=== PATIENT | female | born 1950 | race Caucasian/White ===

== ENCOUNTER → 2017-04-12 | Outpatient (CLI) | payer MEDICARE, OTHER ==
[~2017-04-12] MED LIST: REGADENOSON 0.4 MG/5 ML SYRINGE IV ONE
--- NOTE | 2017-04-12 11:41 | P.STRESS ---
- Stress Test Note Stress Test Results/Findings: Exam Performed: NM stress lexiscan cardiolite Exam Date: 04/12/17 Height: 5 ft 6 in Weight: 111.13 kg Protocol: N/A Stage: N/A Duration of Exercise: N/A Resting Heart Rate: 66 Resting Blood Pressure: 245 Maximum Achieved Heart Rate: 114 Maximum Achieved Blood Pressure: 217/89 85% PMHR: N/A 100% PMHR: N/A METS: N/A Technologist Comment: Stress Test Results/Findings: Baseline rhythm is sinus mechanism with left bundle branch block. He should receive the injection of Lexiscan. EKG monitoring showed no diagnostic ST segment changes with occasional PVCs. Cardiolite was injected per protocol. Impression: 1. Nondiagnostic EKG stress test. 2. Nuclear images will be reported separately.
--- NOTE | 2017-04-12 12:47 | NM ---
EXAMINATION TYPE: NM stress lexiscan cardiolite DATE OF EXAM: 04/12/2017 COMPARISON: NONE HISTORY: Chest pain TECHNIQUE: After the intravenous administration of 10.5 mCi Tc 99m Sestamibi - Cardiolite resting SP ECT images acquired 50 minutes post injection. The patient received 0.4mg Lexiscan, 27.1 mCi Tc 99m Sestamibi - Stress images obtained [address] injection FINDINGS: Review of stress and rest SPECT images demonstrates fixed defect involving the apex and septum. Small area of reversibility not excluded. Gated analysis shows normal wall motion with an estimated left ventricular ejection fraction of 61 %. IMPRESSION: Fixed defect involving the apical and septal portion of the myocardium. Small area of stress-induced reversibility not excluded. A Yellow message has been communicated to Matt Jeffers MD via the [employer] system on 04/12/2017 12:45 PM, Message ID [id number].
== END | disposition home or self-care (01) ==
LOC: RADNMMAIN 07:36
PROVIDERS: ATTEND Family Medicine
DX: R07.89 Other chest pain (principal)
CPT/HCPCS: 93017; 78452; A9500

== ENCOUNTER → 2017-04-17 | Outpatient (CLI) | payer MEDICARE, OTHER ==
--- NOTE | 2017-04-18 10:30 | ECHOF ---
Referral Reason:R07.89 Chest Pain on exertion MEASUREMENTS -------- HEIGHT: 167.6 cm WEIGHT: 111.1 kg BP: 127/80 RVIDd: 3.5 cm (< 3.3) IVSd: 1.3 cm (0.6 - 1.1) LVIDd: 3.9 cm (3.9 - 5.3) LVPWd: 1.4 cm (0.6 - 1.1) IVSs: 1.5 cm LVIDs: 2.9 cm LVPWs: 2.3 cm Ao Diam: 2.5 cm (2.0 - 3.7) AV Cusp: 1.8 cm (1.5 - 2.6) LA Diam: 3.4 cm (2.7 - 3.8) MV EXCURSION: 12.842 mm (> 18.000) MV EF SLOPE: 56 mm/s (70 - 150) EPSS: 0.2 cm MV E Gibran: 0.59 m/s MV DecT: 81 ms MV A Gibran: 0.97 m/s MV E/A Ratio: 0.61 RAP: 5.00 mmHg RVSP: 13.79 mmHg FINDINGS -------- LBBB This was a technically difficult study with suboptimal views. There is mild concentric left ventricular hypertrophy. Overall left ventricular systolic function is low-normal with, an EF between 50 - 55 %. There is paradoxical/dysynergic septal motion consistent with left bundle branch block. The right ventricle is mildly enlarged. The left atrium is normal in size. The right atrium is normal in size. 1.5mg of Definity was utilized for enhancement of images Aortic valve is trileaflet and is mildly thickened. The mitral valve leaflets are mildly thickened. There is trace mitral regurgitation. Mild tricuspid regurgitation present. The right ventricular systolic pressure, as measured by Doppler, is 13.79mmHg. Pulmonic valve appears structurally normal. The aortic root size is normal. The pericardium is normal. CONCLUSIONS -------- 1. LBBB 2. Aortic valve is trileaflet and is mildly thickened. 3. The mitral valve leaflets are mildly thickened. 4. There is trace mitral regurgitation. 5. Mild tricuspid regurgitation present. 6. The right ventricular systolic pressure, as measured by Doppler, is 13.79mmHg. 7. Pulmonic valve appears structurally normal. 8. The aortic root size is normal. 9. The pericardium is normal. 10. This was a technically difficult study with suboptimal views. 11. There is mild concentric left ventricular hypertrophy. 12. Overall left ventricular systolic function is low-normal with, an EF between 50 - 55 %. 13. There is paradoxical/dysynergic septal motion consistent with left bundle branch block. 14. The right ventricle is mildly enlarged. 15. The left atrium is normal in size. 16. The right atrium is normal in size. 17. 1.5mg of Definity was utilized for enhancement of images SKIN LAP BONDER: Ruchi Sahu RDCS
== END | disposition home or self-care (01) ==
LOC: RADECHMAIN 14:41
PROVIDERS: ATTEND Family Medicine
DX: I08.1 Rheumatic disorders of both mitral and tricuspid valves (principal); R07.89 Other chest pain
CPT/HCPCS: 93325; C8929; Q9957; 93306

== ENCOUNTER → 2022-03-31 | Outpatient (CLI) | payer MEDICARE ==
[2022-03-31 14:42] LABS: HCT 40.8 % (37.2-46.3); HGB 13.1 g/dL (12.0-15.0); MCH 30.8 pg (27.0-32.0); MCHC 32.1 g/dL (32.0-37.0); MCV 95.8 fL (80.0-97.0); Mean Platelet Volume 9.7 fL (9.5-12.2); NRBC Per 100 WBC 0 /100 WBCS (0.0-0.0); Platelet Count 227 X 10*3/uL (140-440); RBC 4.26 X 10*6/uL (4.10-5.20); WBC 6.23 X 10*3/uL (4.50-10.00)
[2022-03-31 15:02] LABS: Anion Gap 10.2 mmol/L (10.00-18.00); Carbon Dioxide 28.7 mmol/L (20.0-27.5); Potassium 4.7 mmol/L (3.5-5.5)
[2022-03-31 15:03] LABS: African American GFR (CKD) 81.4 (60.0-200.0); Non-African American GFR(CKD) 70.3 (60.0-200.0)
== END | disposition home or self-care (01) ==
LOC: LABWHC1 08:44
PROVIDERS: ATTEND Internal Medicine Interventional Cardiology
DX: Z01.812 Encounter for preprocedural laboratory examination (principal); R94.39 Abnormal result of other cardiovascular function study
CPT/HCPCS: 36415; 80051; 82565; 84520; 85027

== ENCOUNTER 2022-04-11 06:21 | Day surgery (SDC) | payer MEDICARE, OTHER ==
[~2022-04-11 06:21] MED LIST changes: +ALPRAZolam 0.25 MG TAB PO PRN; +ALPRAZolam 0.5 MG TAB PO PRN; +NITROGLYCERIN SL TABS 0.4 MG TAB SUBLINGUAL PRN; -REGADENOSON 0.4 MG/5 ML SYRINGE IV ONE; +SODIUM CHLORIDE 0.9% 1,000 ML in EMPTY BAG 1 BAG IV SCH
[2022-04-11] MEDS ORDERED: SODIUM CHLORIDE 0.9% 1,000 ML IV ONE (06:40)
[2022-04-11] MEDS ORDERED: ASPIRIN 325 MG TAB PO ONE (07:00)
[2022-04-11 07:22] VITALS: TEMP 98.2
[2022-04-11] MEDS ORDERED: VERAPAMIL 2.5 MG/ML 2 ML AMP ONE (07:22)
[2022-04-11] MEDS ORDERED: HEPARIN SODIUM 1,000 UN/ML (10ML VL) ONE (07:26)
[2022-04-11] MEDS ORDERED: fentaNYL (PF) 50 MCG/ML 2 ML AMP ONE (07:26)
[2022-04-11] MEDS ORDERED: fentaNYL (PF) 50 MCG/ML 2 ML AMP IVP ONE (07:49)
[2022-04-11] MEDS ORDERED: LIDOCAINE 1% INJ 10MG/ML (5 ML VIAL-PF) SQ ONE (07:51)
[2022-04-11] MEDS ORDERED: VERAPAMIL SYRINGE (5 MG/10 ML) INTRAARTER ONE (07:54)
[2022-04-11] MEDS ORDERED: HEPARIN SODIUM 1,000 UN/ML (10ML VL) IV ONE (08:00)
[2022-04-11] MEDS ORDERED: IOPAMIDOL-370 125ML BTL INJ ONE (08:06)
[2022-04-11] MEDS ORDERED: RX INFO: IV CONTRAST WAS GIVEN 1 EACH MISC MISCELLANE PRN (08:13)
[2022-04-11] MEDS ORDERED: SODIUM CHLORIDE 0.9% 1,000 ML IV SCH (08:15)
--- NOTE | 2022-04-11 08:18 | P.CARDCATH ---
Date of Procedure: 04/11/22 Description of Procedure: Cardiac Catheterization: The patient is a 71-year-old female with a known history of permanent pacemaker is being evaluated to undergo surgical intervention has been complaining of dyspnea and had an abnormal MPI. Recommendations were made regarding cardiac catheterization, the risks and the complications were discussed with the patient who is in full understanding and agreement. 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 Using Xylocaine Anesthesia and Seldinger technique, a 6-Austrian sheath was introduced in the right radial artery . Subsequently, selective coronary angiography was performed using a 5-Austrian 3.5 bend Jessa catheter. Multiple views of the coronary artery including hemiaxial views were obtained. The left Jessa catheter was used to cross the aortic valve and LVEDP was calculated. Following that, catheter and sheath were removed. Hemostasis was obtained with deployment of TR band . There was no immediate complication. Patient was returned to room in stable condition. Of note, the patient received a total of 5000 units of intravenous heparin as well as intra-arterial verapamil. There was no immediate complications. Findings: Left main: This is a short sized vessel, bifurcating into LAD and left circumflex, left main has no evidence of high-grade stenosis. LAD: This vessel tapers down in the distal third, gives rise to a large proximal diagonal branch, the LAD and its branches have no evidence of high-grade stenosis Left circumflex: This is a nondominant vessel, large in caliber, giving rise to a large obtuse marginal branch, the left circumflex has no evidence of high- grade stenosis RCA: This is a dominant vessel large in caliber, bifurcating into PDA and PLV, the RCA has no evidence of high-grade stenosis Left Ventriculogram: Not performed Hemodynamics: There was no gradient across the aortic valve, LVEDP 12-16 mmHg Conclusion: 1. Normal coronary arteries 2. Right dominance Recommendations: I have recommended continued medical therapy with the aggressive coronary risk modification that has been initiated. The findings and recommendations were discussed with the patient and her family. They are in full understanding and agreement. Duration of sedation is 20 minutes.
[2022-04-11] MEDS ORDERED: ONDANSETRON 4 MG/2 ML VIAL IVP STA (10:06)
[2022-04-11 11:33] VITALS: RESP 16
[2022-04-11 12:36] VITALS: BP 137/67; PULSE 70
[2022-04-12] MEDS ORDERED: ASPIRIN 81 MG PO SCH (09:00)
[2022-04-12] MEDS ORDERED: METOPROLOL SUCCINATE (ER) 25 MG TAB.ER.24H PO SCH (09:00)
== END 2022-04-11 13:02 | disposition home or self-care (01) ==
LOC: CATHCVL 06:21
PROVIDERS: ATTEND Internal Medicine Interventional Cardiology
DX: R94.39 Abnormal result of other cardiovascular function study (principal); R07.9 Chest pain, unspecified; I44.7 Left bundle-branch block, unspecified; Z20.822 Contact with and (suspected) exposure to COVID-19; Z95.0 Presence of cardiac pacemaker; Z87.891 Personal history of nicotine dependence; Z79.82 Long term (current) use of aspirin; Z79.899 Other long term (current) drug therapy; Z88.5 Allergy status to narcotic agent; Z91.040 Latex allergy status; Z90.89 Acquired absence of other organs; Z98.890 Other specified postprocedural states; Z90.710 Acquired absence of both cervix and uterus
CPT/HCPCS: 93458; 87635; C1769 ×2; C1894; J2405; J2001; J3010; J1644; Q9967

== ENCOUNTER → 2023-05-24 | Outpatient (CLI) | payer MEDICARE ==
[2023-05-24 13:55] LABS: African American GFR (CKD) 82 (>60 ml/min/1.73 sqM); Anion Gap 9 mmol/L; Blood Urea Nitrogen 13 mg/dL (7-17); Calcium 9.9 mg/dL (8.4-10.2); Carbon Dioxide 29 mmol/L (22-30); Chloride 103 mmol/L (98-107); Glucose 98 mg/dL (74-99); Non-African American GFR(CKD) 71 (>60 ml/min/1.73 sqM); Potassium 4.6 mmol/L (3.5-5.1); Sodium 141 mmol/L (137-145)
[2023-05-24 13:58] LABS: NT-Pro-B-Type Natriuretic Pept 172 pg/mL
== END | disposition home or self-care (01) ==
LOC: LABWHC1 12:09
PROVIDERS: ATTEND Internal Medicine Interventional Cardiology
DX: R60.0 Localized edema (principal); R06.02 Shortness of breath
CPT/HCPCS: 36415; 80048; 83880

== ENCOUNTER → 2023-08-08 | Outpatient (CLI) | payer MEDICARE ==
--- NOTE | 2023-08-08 11:27 | P.SLEEP ---
History of Present Illness DATE: 08/08/2023 CONSULTATION/NEW PATIENT EVALUATION HISTORY OF PRESENT ILLNESS/SLEEP-WAKE EVALUATION: 73-year-old lady had been evaluated in the sleep center for possible obstructive sleep apnea hypopnea syndrome. SLEEP SCHEDULE: Usually sleep schedule from 11 PM to 6 AM 7 days a week. FALLING ASLEEP: No problems with falling asleep. DURING SLEEP: Patient snores and wakes up from sleep 4 times with nocturia, dry mouth, heartburn, sweating. No history of hypnogogical hallucinations, sleep paralysis, or cataplexy. DURING THE DAY/WAKE STATE: In the morning patient wake up tired, has problems with memory and concentration []. [place] sleepiness scale is 3. Patient takes 1 nap at usually around 1 PM. PAST MEDICAL HISTORY: Cardiac arrhythmia, arm and knee arthritis, headaches, acid reflux, sinusitis problems, acid reflux. PAST SURGICAL HISTORY: Permanent pacemaker insertion. MEDICATIONS: Metoprolol 12.5 mg once a day, Excedrin for migraine as needed, aspirin 81 mg once a day, Tylenol, vitamin D3. SOCIAL HISTORY: Negative for smoking, alcohol consumption occasional. FAMILY HISTORY: Heart problems, arthritis, diabetes, acid reflux. REVIEW OF SYSTEMS: Snoring, multiple awakenings from sleep. No fevers. No double vision. No recent chest pain. No shortness of breath. No abdominal pain. No bleeding episodes. No blood in urine. No seizure episodes. PHYSICAL EXAMINATION: GENERAL: A pleasant patient without any distress. VITAL SIGNS: BP 120/74 , HR 84 , RR 18 , weight 261.8 pounds, height 5 foot 3.75 inches, body mass index 45.2 . HEENT: PERRLA, EOMI. Evaluation of oropharynx showed tongue protrudes midline, low position of soft palate Mallampati 4. NECK: Supple. No JVD. Thyroid is not palpable. 17 inches in circumference. LUNGS: Clear to percussion and to auscultation. Good air exchange. No wheezing or rhonchi. HEART: S1, S2 regular. No murmurs, gallops or rubs. ABDOMEN: Soft and nontender. Bowel sounds are present. No organomegaly appreciated. EXTREMITIES: No clubbing or cyanosis. 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 Cranial nerves 2 to 7 intact. There is no fasciculation or atrophy noted. No focal deficits observed. ASSESSMENT: 1. Snoring, multiple awakenings from sleep, extremely low position of soft palate Mallampati 4, wide neck 17 inches in circumference, episodes of sleepiness patient takes nap afternoon. Obstructive sleep apnea hypopnea syndrome. 2. Obesity, BMI 45.2. 3. History of sinuses problems. 4. History of arms and knee arthritis. 5 history of migraine. 6 . History of acid reflux. 7. Status post permanent pacemaker insertion. 8. History of claustrophobia. PLAN: 1. Polysomnography for evaluation of patient's breathing during sleep. 2. CPAP/BiPAP titration if sleep study confirms obstructive sleep apnea- hypopnea syndrome. 3. Preferable position during sleep on the side. 4. No driving if patient feels any sleepiness. Patient is aware of civil and criminal liability for unsafe driving. 5. Sleep hygiene with regular sleep time for at least 7.5-8 hours. 6. Watching weight. 7. I discussed with patient desensitization with the mask. Thank you very much for referring this patient for consultation. Sincerely, Ramo Mclaughlin MD, PhD, FAASM. Diplomat of [place] [employer], Sleep Medicine Board by [place] [employer] [place] [employer] Engineering Teacher of [facility] [place] Past Medical History Past Medical History: Asthma, GERD/Reflux, Osteoarthritis (OA) Additional Past Medical History / Comment(s): PREV. LEFT BUNDLE BRANCH BLOCK, RECENT COMPLETE HEART BLOCK AND PACEMAKER PLACEMENT NOVEMBER 2021 History of Any Multi-Drug Resistant Organisms: None Reported Past Surgical History: Back Surgery, Breast Surgery, Heart Catheterization, Hysterectomy, Pacemaker, Tonsillectomy Additional Past Surgical History / Comment(s): CATARACTS REMOVED, THROAT SURGERY, BREAST REDUCTION Past Anesthesia/Blood Transfusion Reactions: No Reported Reaction Additional Past Anesthesia/Blood Transfusion Reaction / Comment(s): pt states "slow to wake up". father experiences extreme agitation coming out of anesthesia Type of Cardiac Device: Permanent Pacemaker Device Placement Date:: 11/2021 Past Psychological History: No Psychological Hx Reported Smoking Status: Never smoker Past Alcohol Use History: None Reported Past Drug Use History: None Reported - Past Family History Father Family Medical History: Cancer Mother Additional Family Medical History / Comment(s): HEART ISSUES Medications and Allergies Home Medications Medication Instructions Recorded Confirmed Type Acetaminophen [Tylenol Arthritis] 650 mg PO DAILY 07/12/17 07/21/22 History Aspirin [Adult Low Dose Aspirin EC] 81 mg PO DAILY 07/12/17 07/21/22 History Cholecalciferol (Vitamin D3) 2,000 unit PO DAILY 07/12/17 07/21/22 History [Vitamin D3] Acetaminophen Tab [Tylenol] 500 mg PO HS 12/08/21 07/21/22 History Calcium Carbonate/Vitamin D3 1 tab PO DAILY 12/08/21 07/21/22 History [Calcium 500 mg-Vit D3 5 mcg (200 Unit)] Marcell-3 Fatty Acids [Marcell-3] 1,200 mg PO DAILY 12/08/21 07/21/22 History Aspirin/Acetaminophen/Caffeine 0.5 - 1 each PO DAILY PRN 04/07/22 04/11/22 History [Excedrin Migraine Caplet] Metoprolol Succinate [Metoprolol 12.5 mg PO HS 04/07/22 07/21/22 History Succinate ER] Allergies Allergy/AdvReac Type Severity Reaction Status Date / Time adhesive tape Allergy Itching Verified 07/21/22 10:19 latex Allergy water Verified 07/21/22 10:19 blisters morphine Allergy Hallucinati Verified 07/21/22 10:19 ons nickel Allergy water Verified 07/21/22 10:19 blisters Sleep Note - Sleep Note Sleep Note: Temperature: Pulse Rate: Respiratory Rate: Blood Pressure: SpO2: Height: Weight: BMI: Neck Circumference:
== END ==
LOC: 3 N SLEEP 10:20
PROVIDERS: ATTEND Internal Medicine
DX: G47.33 Obstructive sleep apnea (adult) (pediatric) (principal); E66.9 Obesity, unspecified; K21.9 Gastro-esophageal reflux disease without esophagitis; M17.9 Osteoarthritis of knee, unspecified; G43.909 Migraine, unspecified, not intractable, without status migrainosus; J45.909 Unspecified asthma, uncomplicated; Z95.0 Presence of cardiac pacemaker; Z87.898 Personal history of other specified conditions; Z68.42 Body mass index [BMI] 45.0-49.9, adult; Z91.040 Latex allergy status; Z88.5 Allergy status to narcotic agent; Z91.048 Other nonmedicinal substance allergy status; Z79.82 Long term (current) use of aspirin
CPT/HCPCS: 99211

== ENCOUNTER 2023-09-30 19:28 | Outpatient (CLI) | payer MEDICARE ==
--- NOTE | 2023-10-03 11:05 | P.PCN ---
Description of Procedure: POLYSOMNOGRAPHY REPORT PROCEDURE(S)/DATE(S): Polysomnography on 04/12/2024 CLINICAL: Patient has been seen in the sleep center for evaluation of obstructive sleep apnea-hypopnea syndrome. Please see my consultation. Sleep study has been done for evaluation of patient breathing during the sleep. PROCEDURE: The standard montage for clinical polysomnography included the electroencephalogram, the electrooculogram, the mentalis surface electromyography and Lead II cardiography. The respiratory battery consisted of measurements of nasal/buccal air flow, pressure transducer measurements from nose, thoracic and/or abdominal effort and intercostal surface electromyography. Video monitoring has been done to check for any parasomnia events. Nocturnal oxyhemoglobin saturations were obtained by finger oximetry. Step-carr titration with positive airway pressure was utilized to control the respiratory events, if necessary. RESULTS: During the diagnostic sleep study sleep efficiency was close to normal 86.1 %. Latency to sleep onset was 6.5 min. Sleep architecture showed stage NI was extremely high 25.3 %, Delta sleep was absent 0 %, REM sleep was in high range 25.5 %. Respiratory channel showed 1 obstructive apneas, 1 mixed apneas, 0 central apneas, 149 hypopneas with lowest oxygen level 70%. Total apnea hypopnea index was 26.5. Heart rate was in the range between 74 and 82, average 78. EMG showed 54.1 periodic limb movements per hour with 0 micro-arousals per hour. IMPRESSIONS: 1. Moderate, close to severe obstructive sleep apnea hypopnea syndrome. 2. Periodic limb movements have been documented. Please see other impressions from consultation PLAN: 1. The patient will have PAP titration for correction of respiratory abnormalities during the sleep. 2. Losing weight program. 3. Sleep hygiene with regular time in bed for at least 7-1/2 hours. 4. No driving if feeling sleepiness. 5. Please check iron profile including ferritin level. Low level of iron may increase the risk for periodic limb movements. Thank you very much for allowing me to participate in the management of your patient. Sincerely, Ramo Mclaughlin MD, PhD, FAASM. Diplomat of [place] [employer], Sleep Medicine Board by [place] [employer] Supervisor of [facility] [place]
== END 2023-10-01 05:45 | disposition home or self-care (01) ==
LOC: 3 N SLEEP 19:28
PROVIDERS: ATTEND Internal Medicine
DX: G47.33 Obstructive sleep apnea (adult) (pediatric) (principal); G47.61 Periodic limb movement disorder; Z91.048 Other nonmedicinal substance allergy status; Z91.040 Latex allergy status; Z88.5 Allergy status to narcotic agent; Z91.09 Other allergy status, other than to drugs and biological substances
CPT/HCPCS: 95810

== ENCOUNTER → 2024-08-27 | Outpatient (CLI) | payer MEDICARE ==
[2024-08-27 18:55] LABS: Alternaria alternata IgE <0.10 kU/L; Aspergillus fumagatus IgE <0.10 kU/L; Birch IgE <0.10 kU/L; Cat Epith & Dander IgE <0.10 kU/L; Cladosporian herbarum IgE <0.10 kU/L; Clam IgE <0.10 kU/L; Cockroach IgE <0.10 kU/L; Codfish IgE <0.10 kU/L; Dermato. farinae IgE <0.10 kU/L; Dog Dander IgE <0.10 kU/L; Egg White IgE <0.10 kU/L; Elm IgE <0.10 kU/L; Maple (Box Elder) IgE <0.10 kU/L; Oak IgE <0.10 kU/L; Peanut IgE <0.10 kU/L; Ragweed,Common IgE <0.10 kU/L; Red Top (Bentgrass) IgE <0.10 kU/L; Scallop IgE <0.10 kU/L; Shrimp IgE <0.10 kU/L; Soybean IgE <0.10 kU/L; Walnut IgE (Food) <0.10 kU/L
== END | disposition home or self-care (01) ==
LOC: LABWHC1 10:01
PROVIDERS: ATTEND Internal Medicine Critical Care Medicine
DX: J45.909 Unspecified asthma, uncomplicated (principal); R06.00 Dyspnea, unspecified; R05.9 Cough, unspecified
CPT/HCPCS: 36415; 82785; 85008; 86003

== ENCOUNTER → 2025-03-24 | Outpatient (CLI) | payer MEDICARE ==
--- NOTE | 2025-03-24 13:59 | CT ---
EXAMINATION TYPE: CT hip RT wo con DATE OF EXAM: 03/24/2025 COMPARISON: None CLINICAL INDICATION: Female, 74 years old with history of S72.001A FXOF UNSP PART OF NECK OF RIGHT FE MUR; PHH, FX OF RIGHT FEMORAL NECK CT DLP: 1616.8 mGycm Automated exposure control for dose reduction was used. FINDINGS: There is no fracture, dislocation or focal intraosseous abnormality. Soft tissues are unremarkable. T he right hip joint space is well-maintained and there is no cyst. The left hemipelvis is intact IMPRESSION: 1 NO EVIDENCE OF FRACTURE OR DISLOCATION OF THE RIGHT HIP. 2. NO SIGNIFICANT OSTEOARTHRITIS OF THE RIGHT HIP. [facility], , 03/24/2025 1:57 PM
== END | disposition home or self-care (01) ==
LOC: RADCTMAIN 12:48
PROVIDERS: ATTEND Orthopaedic Surgery
DX: S72.001A Fracture of unspecified part of neck of right femur, initial encounter for closed fracture (principal)